=== PATIENT | male | born 1995 | race Caucasian/White ===

== ENCOUNTER 2023-09-01 14:16 | Emergency (ER) | payer OTHER ==
[2023-09-01] MEDS ORDERED: Bacitracin Oint 30 GM Tube TOP SCH (15:00)
[2023-09-01] MEDS: Lidocaine 1% with EPINEPHrine 1:100,000 20 ML MDV ONE (15:02)
[2023-09-01] MEDS: Lidocaine 1% with EPINEPHrine 1:100,000 20 ML MDV INJECT ONE (15:02)
[2023-09-01] MEDS: Bacitracin/Neomycin/Polymyxin B Oint 28.4 GM Tube TOP PRN (15:10)
[2023-09-01] MEDS: Bacitracin/Neomycin/Polymyxin B Oint 28.4 GM Tube ONE (15:11)
== END 2023-09-01 15:25 | disposition home or self-care (01) ==
LOC: KA.ED 14:16
DX: S81.811A Laceration without foreign body, right lower leg, initial encounter (principal); Z91.030 Bee allergy status; Z91.013 Allergy to seafood; V86.99XA Unspecified occupant of other special all-terrain or other off-road motor vehicle injured in nontraffic accident, initial encounter
CPT/HCPCS: 12001; 73590-RT; 99283; J3490